=== PATIENT | male | born 1940 | race Caucasian/White ===

== ENCOUNTER → 2019-09-18 | Outpatient (CLI) | payer MEDICARE | END | disposition home or self-care (01) | LOC: ECT 09:49 | DX: F33.2 Major depressive disorder, recurrent severe without psychotic features (principal); F41.9 Anxiety disorder, unspecified; Z85.118 Personal history of other malignant neoplasm of bronchus and lung; E78.00 Pure hypercholesterolemia, unspecified; I48.91 Unspecified atrial fibrillation; Z79.01 Long term (current) use of anticoagulants; Z86.73 Personal history of transient ischemic attack (TIA), and cerebral infarction without residual deficits; R73.03 Prediabetes; I70.0 Atherosclerosis of aorta; N40.0 Benign prostatic hyperplasia without lower urinary tract symptoms; Z87.891 Personal history of nicotine dependence; Z79.899 Other long term (current) drug therapy ==

== ENCOUNTER 2019-10-12 05:02 | Outpatient (RCR) | payer MEDICARE ==
[~2019-10-12] VITALS: Ht 193 cm; Wt 80.7 kg
[2019-10-12] MEDS ORDERED: NS 500ML ONE (05:03)
[2019-10-12] MEDS ORDERED: Methohexital Sodium Syr 100mg/10ml IVP ONE (05:03)
[2019-10-12] MEDS ORDERED: Succinylcholine 20mg/ml 10ml vial ONE (05:03)
[2019-10-12 07:15] VITALS: BP 125/63
[2019-10-12 08:12] VITALS: BP 125/63
[2019-10-12 08:25] VITALS: BP 112/65
[2019-10-12 08:30] VITALS: BP 115/56
[2019-10-12 08:35] VITALS: BP 111/50
[2019-10-12 08:40] VITALS: BP 104/57
== END 2019-10-13 | disposition home or self-care (01) ==
LOC: ECT 05:02
DX: F33.2 Major depressive disorder, recurrent severe without psychotic features (principal); F41.9 Anxiety disorder, unspecified; I48.91 Unspecified atrial fibrillation; N40.0 Benign prostatic hyperplasia without lower urinary tract symptoms; R73.03 Prediabetes; E78.00 Pure hypercholesterolemia, unspecified
CPT/HCPCS: 90870

== ENCOUNTER 2019-11-16 05:07 | Outpatient (RCR) | payer MEDICARE ==
[~2019-11-16] VITALS: Ht 193 cm; Wt 80.7 kg
[2019-11-16] MEDS ORDERED: Methohexital Sodium Syr 100mg/10ml IVP ONE (05:08)
[2019-11-16] MEDS ORDERED: NS 500ML ONE (05:08)
[2019-11-16] MEDS ORDERED: Succinylcholine 20mg/ml 10ml vial ONE (05:08)
[2019-11-16 07:50] VITALS: BP 141/69
[2019-11-16 08:04] VITALS: BP 127/53
[2019-11-16 08:09] VITALS: BP 120/59
[2019-11-16 08:14] VITALS: BP 124/56
[2019-11-16 08:19] VITALS: BP 117/65
[2019-11-20] MEDS ORDERED: Succinylcholine 20mg/ml 10ml vial ONE (06:00)
[2019-11-20] MEDS ORDERED: Methohexital Sodium Syr 100mg/10ml IVP ONE (06:00)
[2019-11-20] MEDS ORDERED: NS 500ML ONE (06:00)
[2019-11-20 08:21] VITALS: BP 123/75
[2019-11-20 08:35] VITALS: BP 121/58
[2019-11-20 08:40] VITALS: BP 118/57
[2019-11-20 08:45] VITALS: BP 116/64
[2019-11-20 08:50] VITALS: BP 120/57
[2019-11-23 07:58] VITALS: BP 124/62
[2019-11-23 08:09] VITALS: BP 111/54
[2019-11-23 08:14] VITALS: BP 113/59
[2019-11-23 08:19] VITALS: BP 113/57
[2019-11-23 08:24] VITALS: BP 115/55
[2019-11-23] MEDS ORDERED: Methohexital Sodium Syr 100mg/10ml IVP ONE (09:00)
[2019-11-23] MEDS ORDERED: NS 500ML ONE (09:00)
[2019-11-23] MEDS ORDERED: Succinylcholine 20mg/ml 10ml vial ONE (09:00)
== END 2019-12-12 | disposition home or self-care (01) ==
LOC: ECT 05:07
DX: F33.2 Major depressive disorder, recurrent severe without psychotic features (principal)
CPT/HCPCS: 90870; J0330; J7040